=== PATIENT | male | born 1960 | race Caucasian/White ===

== ENCOUNTER → 2021-11-06 13:19 | Outpatient (BNVA) | payer BC, SELFPAY | PROVIDERS: PCP Family Medicine; Visit Provider Internal Medicine | DX: E78.2 Mixed hyperlipidemia (principal); M13.0 Polyarthritis, unspecified | CPT/HCPCS: 36415; 80053; 80061; 83036 ==

== ENCOUNTER → 2021-12-26 10:31 | Outpatient (BNVA) | payer BC, SELFPAY | PROVIDERS: PCP Family Medicine; Visit Provider Internal Medicine | DX: M13.0 Polyarthritis, unspecified (principal); L40.9 Psoriasis, unspecified; M79.89 Other specified soft tissue disorders; M65.872 Other synovitis and tenosynovitis, left ankle and foot; M65.871 Other synovitis and tenosynovitis, right ankle and foot; M19.042 Primary osteoarthritis, left hand; M79.672 Pain in left foot; M25.78 Osteophyte, vertebrae; E78.2 Mixed hyperlipidemia | CPT/HCPCS: 36415; 72100; 72202; 73120; 73620; 80053; 80061; 81001; 82306; 82310; 82550; 82728; 83036; 83516; 83540; 83735; 83970; 84100; 84443; 84550; 85025; 85651; 86003; 86008; 86140; 86160; 86162; 86200; 86235; 86255; 86376; 86431; 86480; 86704; 86803; 87340 ==

== ENCOUNTER → 2022-06-26 12:21 | Outpatient (BNVA) | payer BC, SELFPAY | PROVIDERS: PCP Family Medicine; Visit Provider Internal Medicine | DX: E78.2 Mixed hyperlipidemia (principal); R79.0 Abnormal level of blood mineral; E11.8 Type 2 diabetes mellitus with unspecified complications | CPT/HCPCS: 36415; 80053; 82550; 83516; 83735; 84100; 84443; 85025; 85651; 86140; 86480 ==

== ENCOUNTER → 2022-11-23 13:47 | Outpatient (BNVA) | payer BC, SELFPAY | PROVIDERS: PCP Family Medicine; Visit Provider Internal Medicine | DX: E78.2 Mixed hyperlipidemia (principal); M13.0 Polyarthritis, unspecified; E11.9 Type 2 diabetes mellitus without complications | CPT/HCPCS: 80053; 80061; 82044; 83036; 84439; 84443 ==

== ENCOUNTER 2022-12-03 08:42 | Outpatient (CLI) | payer BC, SELFPAY ==
[2022-12-03 09:15] LABS: Urine Creatinine 83 mg/dL (39-259)
[2022-12-03 09:45] LABS: Total Volume Urine 3000 ml
[2022-12-10 12:24] LABS: Free Cortisol Urine 13.3 mcg/24 h (4.0-50.0); Total Urine 3000 mL; Urine Creatinine 2.29 g/24 h (0.50-2.15)
== END 2022-12-03 08:43 | disposition home or self-care (01) ==
PROVIDERS: PCP Family Medicine; Visit Provider Internal Medicine
DX: E78.2 Mixed hyperlipidemia (principal); M13.0 Polyarthritis, unspecified; Z79.899 Other long term (current) drug therapy
CPT/HCPCS: 82530; 82570

== ENCOUNTER → 2023-02-20 11:34 | Outpatient (BNVA) | payer BC, SELFPAY | PROVIDERS: PCP Nurse Practitioner Family; Visit Provider Internal Medicine | DX: E87.6 Hypokalemia (principal); D69.6 Thrombocytopenia, unspecified; E83.39 Other disorders of phosphorus metabolism; Z91.018 Allergy to other foods; K76.9 Liver disease, unspecified | CPT/HCPCS: 36415; 80053; 84100; 85025; 85651; 86003; 86008; 86140 ==